=== PATIENT | female | born 1975 | race American Indian/Alaskan Native ===

== ENCOUNTER 2016-12-18 08:37 | Inpatient (IN) | payer OTHER ==
--- NOTE | 2016-12-17 09:05 | Anesthesia Consultation ---
Anesthesia Consult and Med Hx Date of service: 12/17/16 - Airway Anesthetic Teeth Evaluation: Good, Chipped (top right molar) ROM Head & Neck: Adequate Mental/Hyoid Distance: Adequate Mallampati Class: Class III Intubation Access Assessment: Possibly Difficult - Pulmonary Exam CTA: Yes - Cardiac Exam Cardiac Exam: RRR - Pre-Operative Health Status ASA Pre-Surgery Classification: ASA3 Proposed Anesthetic Plan: General - Pulmonary Hx Smoking: Yes (QUIT 4 YRS AGO, 10YRS 1/2PPD) Hx Asthma: No Hx Sleep Apnea: No - Cardiovascular System Hx Hypertension: Yes (15YRS) Hx Heart Murmur: Yes - Central Nervous System Hx Seizures: No CVA: Yes (TIA 2007) Hx Psychiatric Problems: Yes (DEPRESSION) - Gastrointestinal Hx Gastroesophageal Reflux Disease: Yes - Endocrine Hx Renal Disease: No Hx Liver Disease: No Hx Hypothyroidism: No Hx Hyperthyroidism: No - Other Systems Hx Cancer: No Hx Obesity: Yes (MORBID OBESITY) - Additional Comments Anesthesia Medical History Comments: STRESS TEST NEGATIVE 09/2016
[2016-12-17 10:14] LABS: Basophils % (Auto) 0.6 % (0.0-1.8); Eosinophils % (Auto) 1.3 % (0.0-4.3); Hematocrit 38.5 % (30.3-42.9); Hemoglobin 12.1 gm/dl (10.1-14.3); Mean Corpuscular HGB Conc 32 % (30-34); Mean Corpuscular Volume 78 fl (79-97); Platelet Count 200 K/mm3 (140-440); Red Blood Count 4.96 M/mm3 (3.65-5.03); Red Cell Distribution Width 17.6 % (13.2-15.2); White Blood Count 4.6 K/mm3 (4.5-11.0)
[2016-12-17 10:17] LABS: Mean Corpuscular Hemoglobin 24 pg (28-32)
[2016-12-17 10:18] LABS: Alanine Aminotransferase 48 units/L (7-56); Albumin 3.9 g/dL (3.9-5); Albumin/Globulin Ratio 1.2 %; Anion Gap 16 mmol/L; BUN/Creatinine Ratio 18.33; Blood Urea Nitrogen 11 mg/dL (7-17); Calcium 8.7 mg/dL (8.4-10.2); Carbon Dioxide 25 mmol/L (22-30); Chloride 105.4 mmol/L (98-107); Glucose 127 mg/dL (65-100); Potassium 3.8 mmol/L (3.6-5.0); Sodium 143 mmol/L (137-145); Total Protein 7.1 g/dL (6.3-8.2)
[2016-12-17 12:40] LABS: Alkaline Phosphatase 104 units/L (35-129)
[~2016-12-18 08:37] MED LIST: NACL 0.9% 1000 ML 1,000 ML IV SCH; PEPCID IV NR; REGLAN IV NR; TRANSDERM-SCOP TD NR; VERSED IV NR
[2016-12-18] MEDS ORDERED: ZEMURON IV ONE (10:00)
[2016-12-18] MEDS ORDERED: NEO SYNEPHRINE/NS Syringe(OR USE) IV ONE (10:00)
[2016-12-18] MEDS ORDERED: ZOFRAN IV PRN ×2 (10:42→16:33)
--- NOTE | 2016-12-18 10:42 | Anesthesia Day of Surgery ---
Anesthesia Day of Surgery - Day of Surgery Patient Examined: Yes Patient H&P Reviewed: Yes Patient is NPO: Yes Beta Blockers: Yes
[2016-12-18] MEDS ORDERED: DIPRIVAN 10 MG/ML IV ONE ×2 (10:56→14:14)
[2016-12-18] MEDS ORDERED: SUBLIMAZE ONE (10:57)
[2016-12-18] MEDS ORDERED: ANCEF/STERILE WATER 2 GM/20 ML IV NR (11:00)
[2016-12-18] MEDS ORDERED: FLAGYL 500 MG/100 ML 500 MG/100 ML BAG IV NR (11:00)
[2016-12-18] MEDS ORDERED: VERSED IV ONE (12:00)
[2016-12-18] MEDS ORDERED: SUBLIMAZE IV ONE (12:00)
[2016-12-18] MEDS ORDERED: MARCAINE-EPI 0.5%-1:200,000 INFILTRATI ONE ×2 (12:49→13:49)
[2016-12-18] MEDS ORDERED: XYLOCAINE 1% 20 mL ONE (12:50)
[2016-12-18] MEDS ORDERED: WATER FOR IRRIG STERILE IR ONE (13:13)
[2016-12-18] MEDS ORDERED: XYLOCAINE MPF 2% ONE (13:36)
[2016-12-18] MEDS ORDERED: ZOFRAN ONE (13:36)
[2016-12-18] MEDS ORDERED: DECADRON ONE (13:36)
[2016-12-18] MEDS ORDERED: NACL 0.9% IR ONE (13:48)
[2016-12-18] MEDS ORDERED: XYLOCAINE 1% 20 mL INFILTRATI ONE (13:50)
[2016-12-18] MEDS ORDERED: NEOSTIGMINE ONE (13:56)
[2016-12-18] MEDS ORDERED: ROBINUL ONE (13:56)
[2016-12-18] MEDS ORDERED: NACL 0.9% 1000 ML 1,000 ML ONE (14:16)
[2016-12-18] MEDS: SUBLIMAZE IV PRN ×2 (15:40→16:02)
--- NOTE | 2016-12-18 15:59 | Post Anesthesia Evaluation ---
- Post Anesthesia Evaluation Patient Participated: Yes Airway Patent: Yes Stable Respiratory Function: Yes Nausea/Vomiting: No Temp > 96.8F: Yes Pain Manageable: Yes Adequeate Hydration: Yes Anesthesia Complications: No Block Receding Appropriately: Not Applicable Patient on Ventilator: No
[2016-12-18] MEDS ORDERED: REGLAN IV PRN (16:33)
[2016-12-18] MEDS ORDERED: APRESOLINE IV PRN (16:33)
[2016-12-18] MEDS ORDERED: PROAIR IH ONE (16:48)
--- NOTE | 2016-12-18 17:58 | Admit Criteria Form ---
Admission Criteria Documentation: AMBULATORY SURGERY EXCEPTION CRITERIA Ambulatory Surgery Exception Criteria ( Place 'X' for any and all applicable criteria): Surgery or procedure performed on ambulatory basis may require inpatient stay for[A] ANY ONE of the following(1)(2)(3)(4)(5)(6)(7)(8)(9): [X] I. A preoperative situation, condition, or finding that warrants inpatient stay as indicated by ANY ONE of the following: [] a) Inpatient care needed because of severity of a disease or condition rather than the surgery (eg, severe cardiac or respiratory disease, severe infection) (15) (16 ) (17) (18) [] b) Emergent procedure (eg, angioplasty for acute ischemia)(19) [] c) Complex surgical approach or situation as indicated by ANY ONE of the following(3): [] i) Open approach needed instead of usual endoscopic, transcatheter, or other less invasive procedure [] ii) Difficult approach because of previous operation [] iii) Airway monitoring required after open neck procedures(20)(21) [] iv) Large mass requiring unusually extensive dissection [] v) Additional complicating feature requiring inpatient care (eg, drain management)(22(23): [X] d) Major surgery in a pt with high anesthetic risk as indicated by ANY ONE of the following (2)(3)(5)(7)(8): [X] i) ASA risk class III or higher (severe systemic disease impairing function) [D] [] ii) Advanced age (eg, older than 85 years)(14)(24) [] iii) Symptomatic heart failure(25) [] iv) Symptomatic asthma or COPD(8)(21) [] v) Morbid obesity with hemodynamic or respiratory problems(20)( 21)(26)(27) [] vi) Obstructive sleep apnea(20)(21) [] vii) Former premature infants who are younger than 60 weeks [] viii) High risk for severe postoperative abnormalities (eg, severe postoperative hypocalcemia after parathyroidectomy for severe hyperparathyroidism)(27)( 28) [] ix) Unstable angina(25) [] e) Drug-related risk requiring inpatient stay as indicated by ANY ONE of the following(5)(10)(14)(32)(33) [] i) Procedure requires discontinuing drugs or other therapy (eg , antiarrhythmic medication, antiseizure medication), which necessitates inpatient observation or treatment.(18)(31) [] ii) Major surgery and high risk drug use as indicated by ANY ONE of the following: [] 1) Active abuse of cocaine or similar drug [] 2) Monoamine oxidase inhibitor use [] 3) Other drug identified as posing risk [] f) Inadequate outpatient care situation as indicated by ANY ONE of the following(5)(10)(14)(32)(33) [] i) Patient lives remote from medical facility and procedure has urgent complication potential, and temporary nearby residence cannot be arranged [] ii) Patient will have postprocedure incapacitation and inadequate assistance at home, or alternative level of care cannot be arranged. [] iii) Patient will have long general anesthesia or procedure side effect resolution time, and competent person to stay with patient on first postoperative night at home or alternative level of care cannot be arranged. []iv) Other inadequate outpatient situation that cannot be handled by other means [] II. A perioperative event, condition, or finding that warrants inpatient stay as indicated by ANY ONE of the following (1)(2)(3): [] a) Inadequate physiologic recovery: cardiovascular, respiratory, or hemodynamic status not normal or near preoperative baseline(18) [] b) Hemodynamic instability [] c) Patient not alert with near normal or baseline mental status [] d) Temperature not normal or as expected and not appropriate for outpatient treatment of condition [] e) Ambulatory or appropriate activity level status not yet achieved post procedure [E](34)(35)(36) [] f) Operative site not appropriate (eg, unexpected or excessive drainage or bleeding) [] g) Postoperative effects not resolved or adequately managed (eg, significant pain or vomiting not appropriate for outpatient or next level of care)(10)(12) [] h) Complicating features requiring inpatient care as indicated by ANY ONE of the following(37): [] i) Severe complications of procedure (eg, bowel injury, airway compromise, vascular injury,severe hemorrhage) [] ii) Extensive (eg, dissection far beyond usual scope of procedure ) or prolonged (eg, 120 minutes beyond usual) surgery needed requiring inpatient postoperative care [] iii) Conversion to an open or complex procedure that requires inpatient care (eg, open vs laparoscopic cholecystectomy, abdominal vs vaginal hysterectomy)(38) [] iv) Comorbid condition or test result identified during or post procedure that requires inpatient care (7) [] v) Malignant hyperthermia(30) [] vi) Other complicating feature requiring inpatient care(22)(23) Inpatient stay may be needed until ALL of the following are present (1)(2)(3)(4) (5)(6)(10)(14)(33)(40): []a) Physiologic recovery: cardiovascular, respiratory, and hemodynamic status normal or near preoperative baseline []b) Hemodynamic stability []c) Patient alert, with near normal or baseline mental status []d) Temperature appropriate: patient afebrile or temperature appropriate for outpt treatment of condition []e) Activity level appropriate: ambulatory or appropriate activity level post procedure []f) Operative site appropriate as indicated by ALL of the following: []i) Site dry or with expected drainage []ii) Any blood noted is as expected for procedure. []g) Postoperative effects resolved or managed as indicated by ALL of the following: []i) Pain management appropriate for outpatient (or next level of) care(10) []ii) Minimal nausea and vomiting: if present, successfully treated with oral medication(12) []iii) Headache, dizziness, or drowsiness (if present) are mild. []h) Voiding status acceptable as indicated by ANY ONE of the following: []i) Voiding spontaneously []ii) No voiding but instructions given for follow-up in 6 to 8 hours []iii) Urinary catheter in place, and instructions given for follow-up []i) Complicating features requiring inpatient care manageable at a lower level of care(37) []j) Comorbid conditions manageable at a lower level of care(37) The original [employer] content created by [employer] has been revised. The portions of the content which have been revised are identified through the use of italic text or in bold, and [facility] [employer] has neither reviewed nor approved the modified material. All other unmodified content is copyright [employer]. Please see references footnoted in the original [employer] edition 2016 Admission Criteria Met: Yes
[2016-12-18] MEDS: MYLICON PO PRN (18:18)
[2016-12-18] MEDS: TORADOL IV SCH (18:19)
[2016-12-18] MEDS: LACTATED RINGERS 1,000 ML IV SCH (18:19)
[2016-12-18] MEDS ORDERED: NORCO PO PRN (19:07)
[2016-12-18] MEDS: DILAUDID IV PRN (22:39)
[2016-12-19] MEDS: ANCEF/NS 1 GM/50 ML 1 GM/50 ML BAG IV SCH ×2 (01:00→04:52)
[2016-12-19] MEDS: TORADOL IV SCH ×2 (01:17→10:26)
[2016-12-19] MEDS: LACTATED RINGERS 1,000 ML IV SCH (01:20)
[2016-12-19 04:33] LABS: Magnesium 2.1 mg/dL (1.7-2.3); Phosphorous 4.7 mg/dL (2.5-4.5)
[2016-12-19] MEDS: MYLICON PO PRN (04:58)
[2016-12-19] MEDS: DILAUDID IV PRN (04:58)
[2016-12-19 05:48] LABS: Basophils % (Auto) 0.3 % (0.0-1.8); Hemoglobin 11.7 gm/dl (10.1-14.3); Mean Corpuscular HGB Conc 32 % (30-34); Mean Corpuscular Volume 78 fl (79-97); Platelet Count 205 K/mm3 (140-440); Red Blood Count 4.77 M/mm3 (3.65-5.03); Red Cell Distribution Width 18.3 % (13.2-15.2); White Blood Count 11.6 K/mm3 (4.5-11.0)
[2016-12-19 05:50] LABS: Mean Corpuscular Hemoglobin 25 pg (28-32)
[2016-12-19 06:05] LABS: Alanine Aminotransferase 41 units/L (7-56); Albumin 3.4 g/dL (3.9-5); Albumin/Globulin Ratio 1.2 %; Alkaline Phosphatase 97 units/L (35-129); Anion Gap 19 mmol/L; Blood Urea Nitrogen 18 mg/dL (7-17); Calcium 8.6 mg/dL (8.4-10.2); Carbon Dioxide 21 mmol/L (22-30); Chloride 103.4 mmol/L (98-107); Glucose 131 mg/dL (65-100); Sodium 139 mmol/L (137-145); Total Protein 6.3 g/dL (6.3-8.2)
[2016-12-19 09:53] VITALS: BP 119/77
[2016-12-19] MEDS ORDERED: LOVENOX SUB-Q SCH (10:00)
[2016-12-19] MEDS ORDERED: FLUARIX QUAD 2016-2017(36 MOS+) IM ONE (12:00)
--- NOTE | 2016-12-19 12:35 | Discharge Summary ---
Providers - Providers Date of Admission: 12/18/16 09:23 Date of discharge: 12/19/16 Attending physician: ALISIA CALDERON Primary care physician: OLMAN MONTENEGRO MD Hospitalization Reason for admission: postop observation Condition: Stable Disposition: DISCHARGED TO HOME OR SELFCARE Core Measure Documentation - Palliative Care Palliative Care/ Comfort Measures: Not Applicable - Core Measures Any of the following diagnoses?: none Exam - Physical Exam Narrative exam: VSS NAD Lungs CTA BL Heart RRR Abd soft, ND, approriate TTP around wounds AAOx3 - Constitutional Vitals: Temp Pulse Resp BP Pulse Ox 98.2 F 63 20 119/77 98 12/19/16 09:52 12/19/16 09:52 12/19/16 09:52 12/19/16 09:52 12/19/16 10:00 Plan Activity: advance as tolerated Diet: other Wound: keep clean and dry Special Instructions: no heavy lifting Follow up with: PRIMARY MD MONI [Primary Care Provider] - 7 Days
== END 2016-12-19 15:05 | disposition home or self-care (01) | DRG 621 ==
LOC: 3A 09:23 → 2B-SURG 16:51
PROVIDERS: ADMIT Specialist; ATTEND Specialist
PROC: 0D164ZA Bypass Stomach to Jejunum, Percutaneous Endoscopic Approach (ICD-10-PCS; principal; 2016-12-18)
PROC: 0BQS4ZZ (ICD-10-PCS; 2016-12-18)
PROC: 0BQR4ZZ (ICD-10-PCS; 2016-12-18)
DX: E66.01 Morbid (severe) obesity due to excess calories (principal); K21.9 Gastro-esophageal reflux disease without esophagitis; I10 Essential (primary) hypertension; Z68.41 Body mass index [BMI] 40.0-44.9, adult; F32.9 Major depressive disorder, single episode, unspecified; K44.9 Diaphragmatic hernia without obstruction or gangrene; K58.9 Irritable bowel syndrome, unspecified; Z88.6 Allergy status to analgesic agent; Z87.891 Personal history of nicotine dependence; Z86.73 Personal history of transient ischemic attack (TIA), and cerebral infarction without residual deficits; Z88.8 Allergy status to other drugs, medicaments and biological substances
CPT/HCPCS: 36415; 80053; 83735; 84100; 85025; 90686; C9250; J0360; J0690; J1100; J1170; J1650; J1885; J2250; J2370; J2405; J2704; J2710; J2765; J3010; J7030; J7120

== ENCOUNTER 2018-11-17 22:44 | Emergency (ER) | payer OTHER ==
[2018-11-17 23:09] VITALS: BP 131/85
[2018-11-17 23:41] LABS: Basophils % (Auto) 0.4 % (0.0-1.8); Eosinophils % (Auto) 0.1 % (0.0-4.3); Lymphocytes # (Auto) 2.4 K/mm3 (1.2-5.4); Lymphocytes % (Auto) 29.1 % (13.4-35.0); Mean Corpuscular HGB Conc 33 % (30-34); Mean Corpuscular Volume 90 fl (79-97); Monocytes # (Auto) 0.7 K/mm3 (0.0-0.8); Monocytes % (Auto) 8.2 % (0.0-7.3); Platelet Count 181 K/mm3 (140-440)
--- NOTE | 2018-11-17 23:51 | XRay Report ---
PROCEDURE: XR CHEST 1V AP TECHNIQUE: Chest radiograph single view. HISTORY: Chest Pain COMPARISONS: None . FINDINGS: Heart: Normal. Mediastinum/Vessels: Normal. Lungs/Pleural space: Normal. Bony thorax: No acute osseous abnormality. Life support devices: None. IMPRESSION: No acute cardiopulmonary abnormality. This document is electronically signed by Ozzie Miranda MD., November 17 2018 11:49:28 PM ET
[2018-11-18] LABS: BUN/Creatinine Ratio 43; Blood Urea Nitrogen 47 mg/dL (7-17); Calcium 9.3 mg/dL (8.4-10.2); Hemolysis Index 6
== END 2018-11-17 23:48 ==
LOC: ED 22:44
DX: R07.9 Chest pain, unspecified (principal); Z53.21 Procedure and treatment not carried out due to patient leaving prior to being seen by health care provider
CPT/HCPCS: 36415; 71045; 80048; 84484; 85025; 93005; 93010